=== PATIENT | male | born 1960 | race Asian ===

== ENCOUNTER 2020-06-24 07:44 | Day surgery (SDC) | payer OTHER, MEDICAID, SELFPAY ==
[~2020-06-24] VITALS: Ht 170.2 cm; Wt 71.7 kg
[2020-06-24 11:51] VITALS: BP_SYST 167
== END 2020-06-24 11:20 | disposition home or self-care (01) ==
LOC: SMU 07:44 → SDS 07:44
PROVIDERS: ATTEND Internal Medicine
DX: Z12.11 Encounter for screening for malignant neoplasm of colon (principal); D12.0 Benign neoplasm of cecum; D12.4 Benign neoplasm of descending colon; D12.3 Benign neoplasm of transverse colon; Z11.59 Encounter for screening for other viral diseases; Z80.0 Family history of malignant neoplasm of digestive organs; E11.22 Type 2 diabetes mellitus with diabetic chronic kidney disease; I12.0 Hypertensive chronic kidney disease with stage 5 chronic kidney disease or end stage renal disease; N18.6 End stage renal disease; Z99.2 Dependence on renal dialysis; E78.5 Hyperlipidemia, unspecified; Z79.899 Other long term (current) drug therapy
CPT/HCPCS: 45380; 45385; 88305; 99152; 99153; G0378; U0003